=== PATIENT | male | born 1960 | race Caucasian/White ===

== ENCOUNTER 2021-02-28 17:09 | Emergency (ER) | payer OTHER ==
[2021-02-28 19:06] LABS: EOSINOPHIL 3.9 % (0-5); HCT 44.6 % (42.0-52.0); HGB 15.3 g/dl (13.2-18.0); LYMPHOCYTE 38.8 % (15-48); MCH 32.1 pg (25.0-31.0); MCHC 34.3 g/dL (32.0-36.0); MCV 93.7 fL (78.0-100.0); MONOCYTE 12.4 % (0-12); MPV 10.1 fL (6.0-9.5); NEUTROPHIL 43.1 % (41-80); NRBC 0; PLT 249 K/uL (150-400); RBC 4.76 M/uL (4.70-6.00); RDW 12.1 % (11.5-14.0); WBC 5.9 K/uL (4.0-10.5)
[2021-02-28 19:16] LABS: INR 1.09 (0.9-1.2); PROTHROMBIN TIME 13.5 SECONDS (11.8-13.4)
[2021-02-28 19:18] LABS: D-DIMER < 0.27 ug/mLFEU (0.00-0.41)
[2021-02-28] MEDS ORDERED: NEURONTIN300 MG PO (21:01)
[2021-02-28] MEDS ORDERED: BACLOFEN 10MG T10 MG PO (21:01)
== END 2021-02-28 21:20 | disposition home or self-care (01) ==
LOC: FER 17:09
PROVIDERS: Physician Assistant
DX: M54.16 Radiculopathy, lumbar region (principal); I10 Essential (primary) hypertension; E11.9 Type 2 diabetes mellitus without complications; Z79.84 Long term (current) use of oral hypoglycemic drugs; Z79.899 Other long term (current) drug therapy
CPT/HCPCS: 36415; 72131; 85025; 85379; 85610

== ENCOUNTER 2021-05-27 21:37 | Inpatient (IN) | payer OTHER ==
[~2021-05-27] VITALS: Ht 167.6 cm; Wt 69.9 kg
[~2021-05-27 21:37] MED LIST: BACLOFEN 10MG T10 MG PO; NEURONTIN300 MG PO
[2021-05-27 22:14] LABS: BASOPHIL 0.2 % (0-2); EOSINOPHIL 0 % (0-5); HCT 45.5 % (42.0-52.0); HGB 15.8 g/dl (13.2-18.0); LYMPHOCYTE 10.2 % (15-48); MCH 31.8 pg (25.0-31.0); MCHC 34.7 g/dL (32.0-36.0); MCV 91.5 fL (78.0-100.0); MONOCYTE 12.3 % (0-12); MPV 9.9 fL (6.0-9.5); NEUTROPHIL 76.3 % (41-80); NRBC 0; PLT 263 K/uL (150-400); RBC 4.97 M/uL (4.70-6.00); RDW 12.4 % (11.5-14.0); WBC 10.4 K/uL (4.0-10.5)
[2021-05-27 22:30] LABS: BUN/CREAT RATIO (CALC) 21.1 RATIO; CREATININE 1.33 mg/dL (0.67-1.17); POTASSIUM 4.2 mmol/L (3.5-5.1)
[2021-05-27 22:45] LABS: CORONAVIRUS 2019 SARS-COV-2 POSITIVE (NEGATIVE); INFLUENZA A NAA NEGATIVE (NEGATIVE)
[2021-05-28 04:18] LABS: INR 1.16 (0.9-1.2); PROTHROMBIN TIME 14.2 SECONDS (11.8-13.4)
[2021-05-28 04:20] LABS: D-DIMER 0.49 ug/mLFEU (0.00-0.41)
[2021-05-28 04:47] LABS: ALBUMIN 3.1 g/dL (3.4-5.0); BILIRUBIN - DIRECT 0.2 mg/dL (0.00-0.20); BILIRUBIN - TOTAL 0.6 mg/dL (0.2-1.0); BUN/CREAT RATIO (CALC) 30.1 RATIO; C-REACTIVE PROTEIN 8.8 mg/dL (<=0.90); CREATININE 1.03 mg/dL (0.67-1.17); GLOBULIN (CALCULATION) 4.7 g/dL; POTASSIUM 4.4 mmol/L (3.5-5.1); TOTAL PROTEIN 7.8 g/dL (6.4-8.2)
[2021-05-28 06:58] LABS: BASOPHIL 0.2 % (0-2); EOSINOPHIL 0 % (0-5); HCT 44.6 % (42.0-52.0); MCH 31.2 pg (25.0-31.0); MCHC 33.6 g/dL (32.0-36.0); MCV 92.7 fL (78.0-100.0); MONOCYTE 5.5 % (0-12); NEUTROPHIL 80.1 % (41-80); PLT 288 K/uL (150-400); RBC 4.81 M/uL (4.70-6.00); RDW 12.4 % (11.5-14.0); WBC 5.8 K/uL (4.0-10.5)
[2021-05-28 07:02] LABS: INR 1.13 (0.9-1.2); LYMPHOCYTE 13.7 % (15-48); PROTHROMBIN TIME 13.9 SECONDS (11.8-13.4)
[2021-05-28 07:49] LABS: MAGNESIUM 2.5 mg/dL (1.8-2.4); PHOSPHORUS 5.2 mg/dL (2.6-4.7)
[2021-05-28 07:50] LABS: BILIRUBIN - TOTAL 0.5 mg/dL (0.2-1.0); BUN/CREAT RATIO (CALC) 27.3 RATIO; CREATININE 1.1 mg/dL (0.67-1.17); GLOBULIN (CALCULATION) 3.9 g/dL; POTASSIUM 4.9 mmol/L (3.5-5.1); TOTAL PROTEIN 6.9 g/dL (6.4-8.2)
[2021-05-28 08:34] LABS: BAND 4 % (0-10); LYMPHOCYTE(M) 12 % (15-48); MONOCYTE(M) 2 % (0-12); MYELOCYTE 1; NEUTROPHILS(M) 80 % (41-80); NRBC 0; PLATELET ESTIMATE NORMAL; PLATELET MORPHOLOGY NORMAL; TOTAL CELL COUNT 100; VARIANT LYMPHOCYTE 1
[2021-05-28] MEDS ORDERED: LIPITOR40 MG PO (09:40)
[2021-05-28] MEDS ORDERED: METFORMIN HCL500 MG PO (09:40)
[2021-05-28] MEDS ORDERED: LISINOPRIL-HCT1 EAC1 PO (09:41)
[2021-05-28] MEDS ORDERED: MOBIC7.5 MG PO (09:41)
[2021-05-28] MEDS ORDERED: PERCOCET 5-3251 EACH PO (09:42)
[2021-05-28] MEDS ORDERED: NEURONTIN300 MG PO (09:42)
--- NOTE | 2021-05-28 15:42 | NUR ---
SPOKE WITH PT VIA PHONE HE IS IN ISOLATION. PT. STATED THAT IF HE REQUIRES O2, THEN ORDER IT FROM [facility]. PT. STATES THAT HE LIVES WITH HIS AND IS NORMALLY INDEPENDENT. HE REQUIRES NO DME. CHOICE FORM EXPLAINED AND SIGNED FOR PT.
--- NOTE | 2021-05-28 15:44 | NUR ---
GAVE COPY OF CHOICE FORM TO [facility] TO TAKE TO PT.
[2021-05-29 07:22] LABS: ALBUMIN 2.8 g/dL (3.4-5.0); BILIRUBIN - TOTAL 0.4 mg/dL (0.2-1.0); CREATININE 0.84 mg/dL (0.67-1.17); GLOBULIN (CALCULATION) 3.9 g/dL; MAGNESIUM 2.4 mg/dL (1.8-2.4); PHOSPHORUS 4.4 mg/dL (2.6-4.7); POTASSIUM 4.4 mmol/L (3.5-5.1); TOTAL PROTEIN 6.7 g/dL (6.4-8.2)
[2021-05-30 06:52] LABS: BASOPHIL 0.1 % (0-2); EOSINOPHIL 0 % (0-5); HCT 37.9 % (42.0-52.0); HGB 12.8 g/dl (13.2-18.0); LYMPHOCYTE 12.7 % (15-48); MCH 31.4 pg (25.0-31.0); MCHC 33.8 g/dL (32.0-36.0); MCV 92.9 fL (78.0-100.0); MONOCYTE 9.6 % (0-12); MPV 9.6 fL (6.0-9.5); NEUTROPHIL 76.2 % (41-80); NRBC 0; PLT 327 K/uL (150-400); RBC 4.08 M/uL (4.70-6.00); RDW 12.2 % (11.5-14.0)
[2021-05-30 06:54] LABS: WBC 11.4 K/uL (4.0-10.5)
[2021-05-30 07:02] LABS: BUN/CREAT RATIO (CALC) 40.6 RATIO; CREATININE 0.69 mg/dL (0.67-1.17); POTASSIUM 4.4 mmol/L (3.5-5.1)
[2021-05-30 15:06] LABS: ORGANISM ID Not indicated. (.); SPECIMEN SOURCE Urine (.); STREPTOCOCCUS PNEUMONIAE AG Negative (Negative)
[2021-05-30] MEDS ORDERED: MEDROL 4MG DOSEP4 MG PO (15:35)
--- NOTE | 2021-05-30 17:08 | NUR ---
1648--DISCUSSED DISCHARGE INSTRUCTIONS WITH PATIENT. VERBALIZES NO QUESTIONS. SENT HOME ON ROOM AIR R/T O2 SATS MAINTAINED DURING WALK TEST. MD NOTIFIED OF WALK TEST RESULTS. IV REMOVED, NO BLEEDING NOTED. D/C HOME WITH FAMILY
== END 2021-05-30 16:48 | disposition home or self-care (01) | DRG 871 ==
LOC: FER 21:37 → FMS 05-28 02:05
PROVIDERS: Nurse Practitioner Acute Care; Nurse Practitioner Family; ADMIT Internal Medicine
PROC: 8E0ZXY6 Isolation (ICD-10-PCS; principal; 2021-05-28)
PROC: XW033E5 Introduction of Remdesivir Anti-infective into Peripheral Vein, Percutaneous Approach, New Technology Group 5 (ICD-10-PCS; 2021-05-28)
PROC: XW0DXM6 Introduction of Baricitinib into Mouth and Pharynx, External Approach, New Technology Group 6 (ICD-10-PCS; 2021-05-28)
DX: A41.89 Other specified sepsis (principal); U07.1 COVID-19; J96.01 Acute respiratory failure with hypoxia; J12.82 Pneumonia due to coronavirus disease 2019; E87.3 Alkalosis; N17.9 Acute kidney failure, unspecified; E44.0 Moderate protein-calorie malnutrition; R65.20 Severe sepsis without septic shock; E11.65 Type 2 diabetes mellitus with hyperglycemia; T38.0X5A Adverse effect of glucocorticoids and synthetic analogues, initial encounter; E83.42 Hypomagnesemia; E83.39 Other disorders of phosphorus metabolism; I10 Essential (primary) hypertension; E78.00 Pure hypercholesterolemia, unspecified; M51.16 Intervertebral disc disorders with radiculopathy, lumbar region; K59.03 Drug induced constipation; T40.2X5A Adverse effect of other opioids, initial encounter; E78.5 Hyperlipidemia, unspecified; Z98.890 Other specified postprocedural states; Z82.3 Family history of stroke; Z80.1 Family history of malignant neoplasm of trachea, bronchus and lung; Z79.899 Other long term (current) drug therapy; Z79.84 Long term (current) use of oral hypoglycemic drugs; Z68.24 Body mass index [BMI] 24.0-24.9, adult
CPT/HCPCS: 36415; 36600; 71045; 71275; 80048; 80053; 80076; 82550; 82728; 82803; 83036; 83605; 83615; 83735; 84100; 84145; 85025; 85379; 85610; 85730; 86140; 94010; 94640; 94762; C9399; J1100; J1650; J7030; J7050; J8540; Q9967; U0002

== ENCOUNTER 2021-10-04 23:33 | Day surgery (SDCO) | payer OTHER ==
[~2021-10-04] VITALS: Ht 167.6 cm; Wt 74.9 kg
[~2021-10-04 23:33] MED LIST changes: +LIPITOR40 MG PO; +LISINOPRIL-HCT1 EAC1 PO; +MEDROL 4MG DOSEP4 MG PO; +METFORMIN HCL500 MG PO; +MOBIC7.5 MG PO; +PERCOCET 5-3251 EACH PO
[2021-10-05 04:35] LABS: BASOPHIL 0.7 % (0-2); EOSINOPHIL 0.8 % (0-5); HCT 50.9 % (42.0-52.0); HGB 17.6 g/dl (13.2-18.0); MCH 31.6 pg (25.0-31.0); MCHC 34.6 g/dL (32.0-36.0); MCV 91.4 fL (78.0-100.0); MONOCYTE 11.8 % (0-12); NEUTROPHIL 59.4 % (41-80); NRBC 0; PLT 298 K/uL (150-400); RBC 5.57 M/uL (4.70-6.00); RDW 12.4 % (11.5-14.0); WBC 10.3 K/uL (4.0-10.5)
[2021-10-05 04:51] LABS: ALBUMIN 4.4 g/dL (3.4-5.0); BILIRUBIN - TOTAL 0.6 mg/dL (0.2-1.0); BUN/CREAT RATIO (CALC) 32.6 RATIO; CREATININE 0.95 mg/dL (0.67-1.17); GLOBULIN (CALCULATION) 3.5 g/dL; POTASSIUM 3.7 mmol/L (3.5-5.1); TOTAL PROTEIN 7.9 g/dL (6.4-8.2)
[2021-10-05] MEDS ORDERED: METFORMIN HCL500 M2 PO (09:53)
[2021-10-05] MEDS ORDERED: MOBIC7.5 MG PO (09:54)
--- NOTE | 2021-10-05 13:42 | NUR ---
10/05/21 Mr. Escobedo lives at home with his spouse. He has one daughter. Mr. Escobedo is independent in the home and community. They are experiencing financial difficulties. They are supported by his spouse's SS and foodstamps. Mr. Escobedo is aware of the [employer] and financial community resources; i.e. [employer]. - Mr. Escobedo has PCP in [place]. - Mr. Escobedo reports to be unable to work due to back problems causing him difficulties with amb woithout pain and inability to lift. He was referred to [employer] to apply for SSD.
[2021-10-05] MEDS ORDERED: PROTONIX 40MG T40 MG PO (15:43)
== END 2021-10-05 16:25 | disposition home or self-care (01) ==
LOC: FER 23:33 → FMS 10-05 07:19
PROVIDERS: Internal Medicine; ADMIT Internal Medicine
DX: K22.2 Esophageal obstruction (principal); K20.0 Eosinophilic esophagitis; K22.89 Other specified disease of esophagus; K44.9 Diaphragmatic hernia without obstruction or gangrene; E11.9 Type 2 diabetes mellitus without complications; I10 Essential (primary) hypertension; M19.90 Unspecified osteoarthritis, unspecified site; E78.00 Pure hypercholesterolemia, unspecified; Z20.822 Contact with and (suspected) exposure to COVID-19
CPT/HCPCS: 36415; 71250; 80053; 83690; 85025; G0378; J2704; J7030; J7120; U0002